=== PATIENT | female | born 1965 | race Caucasian/White ===

== ENCOUNTER → 2020-04-19 10:24 | Outpatient (BNVA) | payer MEDICARE, MEDICAID, SELFPAY | PROVIDERS: PCP Family Medicine; Referring Provider Family Medicine; Visit Provider Internal Medicine | DX: J30.9 Allergic rhinitis, unspecified (principal); J44.9 Chronic obstructive pulmonary disease, unspecified; Z79.899 Other long term (current) drug therapy | CPT/HCPCS: 99212 ==

== ENCOUNTER → 2020-05-29 10:37 | Outpatient (BNVA) | payer MEDICARE, MEDICAID, SELFPAY | PROVIDERS: PCP Family Medicine; Visit Provider Nurse Practitioner | DX: Z13.89 Encounter for screening for other disorder (principal) | CPT/HCPCS: Q3014 ==

== ENCOUNTER → 2020-07-10 09:44 | Outpatient (BNVA) | payer MEDICARE, MEDICAID, SELFPAY | PROVIDERS: PCP Family Medicine; Visit Provider Nurse Practitioner | DX: Z76.89 Persons encountering health services in other specified circumstances (principal) | CPT/HCPCS: Q3014 ==

== ENCOUNTER → 2020-11-09 11:00 | Outpatient (BNV) | payer MEDICARE, OTHER, MEDICAID, SELFPAY | PROVIDERS: PCP Family Medicine; Visit Provider Internal Medicine Medical Oncology | DX: Z86.711 Personal history of pulmonary embolism (principal); D68.51 Activated protein C resistance; M81.0 Age-related osteoporosis without current pathological fracture | CPT/HCPCS: 99213 ==

== ENCOUNTER 2020-11-23 10:28 | Outpatient (REF) | payer OTHER, SELFPAY ==
--- NOTE | ~2020-11-23 | MM_ITS ---
EXAMINATION: MM SCREENING DIGITAL BREAST TOMOSYNTHESIS, BILATERAL CLINICAL INFORMATION: Screening. Asymptomatic. The lifetime risk of breast cancer based on the Tyrer-Cuzick Model is 15%. COMPARISON: Mammography: 12/03/2018, 06/16/2014 TECHNIQUE: Digital breast tomosynthesis is performed in both the craniocaudal and mediolateral oblique views along with computer-aided detection (CAD). Synthesized 2D images are generated from the tomosynthesis. Additional bilateral exaggerated CC views are provided. FINDINGS: The breasts are almost entirely fatty (ACR BI-RADS breast composition Category a). There are no significant masses, abnormal calcifications, or other abnormalities. Parenchymal pattern is similar to prior studies. The axilla and skin contours are unremarkable. MM/MM tomosynthesis screening BI IMPRESSION: No mammographic evidence of malignancy. ASSESSMENT: BI-RADS 1: Negative RECOMMENDATION: Routine annual mammography screening. This patient's information was entered into a reminder system with a target due date for their next mammogram.
== END 2020-11-23 10:29 | disposition home or self-care (01) ==
LOC: HO.MAMMO 10:28
PROVIDERS: Visit Provider Internal Medicine
DX: Z12.31 Encounter for screening mammogram for malignant neoplasm of breast (principal)
CPT/HCPCS: 77063; 77067

== ENCOUNTER 2022-02-13 09:16 | Outpatient (REF) | payer OTHER, SELFPAY ==
--- NOTE | ~2022-02-13 | MM_ITS ---
EXAMINATION: MM SCREENING DIGITAL BREAST TOMOSYNTHESIS, BILATERAL CLINICAL INFORMATION: Screening. Asymptomatic. History reduction mammoplasty approximately 20 years ago. The lifetime risk of breast cancer based on the Tyrer-Cuzick Model is 14%. COMPARISON: Mammography: 11/23/2020, 12/03/2018, 06/16/2014. GI series and small bowel follow-through 06/22/2019. TECHNIQUE: Digital breast tomosynthesis is performed in both the craniocaudal and mediolateral oblique views along with computer-aided detection (CAD). Synthesized 2D images are generated from the tomosynthesis. FINDINGS: The breasts are almost entirely fatty (ACR BI-RADS breast composition Category a). The breasts are symmetrically smaller consistent with systemic weight loss. There are no significant masses, abnormal calcifications, or other abnormalities. Parenchymal pattern is similar to prior studies. There is no developing density or architectural abnormality. The axilla and skin contours are unremarkable. No significant changes. MM/MM tomosynthesis screening BI IMPRESSION: No mammographic evidence of malignancy. ASSESSMENT: BI-RADS 2: Benign RECOMMENDATION: Routine annual mammography screening. This patient's information was entered into a reminder system with a target due date for their next mammogram.
--- NOTE | ~2022-02-13 | MM_ITS ---
EXAMINATION: BONE DENSITOMETRY CLINICAL INDICATION: Asymptomatic premature menopause. Unspecified menopausal and perimenopausal disorder. COMPARISON: None (current study represents initial baseline exam). TECHNIQUE: Using a [employer] DXA System (software version: 13.1) manufactured by [employer], dual-energy x-ray absorptiometry was performed of the lumbar spine and left hip. The images are of good technical quality. Summary results are attached. FINDINGS: AP SPINE L1-L3 (excluding L4): The data of L1-L4 has been changed to exclude the L4 vertebral body, because hardware at this level may cause overestimation of lumbar spine density. BMD 1.457 g/cm2, Z-score 3.8, T-score 2.4, normal. LEFT FEMUR, NECK: BMD 0.688 g/cm2, Z-score -1.2, T-score -2.5, osteoporosis. LEFT FEMUR, TOTAL: BMD 0.731 g/cm2, Z-score -1.1, T-score -2.2, osteopenia. IDENTIFIED RISK FACTORS: Early menopause, secondary osteoporosis, height loss, low calcium intake. HISTORY OF FRACTURE: None listed. MEDICATIONS: Calcium supplements or multivitamin, vitamin D. MM/XR DEXA axial skeleton IMPRESSION: 1. DIAGNOSIS: Osteoporosis based on the lowest T-score value of -2.5 in the femoral neck applying World Health Organization criteria. 2. 10-YEAR FRACTURE RISK PREDICTION, FRAX: According to the guidelines, FRAX calculation should only be performed on patients in the osteopenia bone density category. Therefore, FRAX was not performed on this patient. 3. Treatment Recommendations: NOF guidelines recommend consideration for treatment in postmenopausal women and men age 50 and older presenting with the following: -A hip or vertebral (clinical or morphometric) fracture. -T-score less than or equal to -2.5 at the femoral neck or spine after appropriate evaluation to exclude secondary causes. -Low bone mass at the hip or spine and a 10-year fracture probability by FRAX of greater than or equal to 3% for hip fracture or greater than or equal to 20% for major osteoporotic fracture based on the [place] adapted WHO algorithm. 4. Other Recommendations: All treatment decisions require clinical judgment and consideration of individual patient factors, including patient preferences, comorbidities, previous drug use, risk factors not captured in the FRAX model (e.g. frailty, falls, vitamin D deficiency, increased bone turnover, interval significant decline in bone density) and possible under or overestimation of fracture risk by FRAX. Additional medical evaluation for secondary cause of low bone mineral density may be appropriate. FUTURE SCAN RECOMMENDATION: People with diagnosed cases of osteoporosis or at high risk for fracture should have regular bone mineral density tests. For patients eligible for Medicare, routine testing is allowed once every 2 years. The testing frequency can be increased to one year for patients who have rapidly progressing disease, those who are receiving or discontinuing medical therapy to restore bone mass, or have additional risk factors.
== END 2022-02-13 09:17 | disposition home or self-care (01) ==
LOC: HO.MAMMO 09:16
PROVIDERS: PCP Internal Medicine; Visit Provider Internal Medicine
DX: Z12.31 Encounter for screening mammogram for malignant neoplasm of breast (principal); Z13.820 Encounter for screening for osteoporosis; Z78.0 Asymptomatic menopausal state
CPT/HCPCS: 77063; 77067; 77080

== ENCOUNTER 2022-09-26 08:43 | Outpatient (REF) | payer OTHER, MEDICAID, SELFPAY ==
[2022-10-02 04:44] LABS: HPV mRNA E6/E7 rflx Not Detected (Not Detected)
== END 2022-09-26 08:44 | disposition home or self-care (01) ==
LOC: HO.LNP 08:43
PROVIDERS: PCP Internal Medicine; Visit Provider Advanced Practice Midwife
DX: Z01.419 Encounter for gynecological examination (general) (routine) without abnormal findings (principal)
CPT/HCPCS: 87624; 88142

== ENCOUNTER 2022-12-02 13:28 | Outpatient (REF) | payer OTHER, MEDICAID, SELFPAY ==
--- NOTE | ~2022-12-02 | XR_ITS ---
EXAMINATION: XR RIBS, LEFT CLINICAL INFORMATION: Contusion COMPARISON: 01/27/2019 TECHNIQUE: PA chest and 3 views of the left ribs were obtained. FINDINGS: Heart, mediastinum, pulmonary vessels and lung grant within normal limits. No pneumothorax or effusions. There is mildly displaced fracture of the fifth lateral rib and minimally displaced fractures of the fourth and fifth anterolateral ribs. XR/XR ribs LT min 3V w CXR1V IMPRESSION: Left-sided rib fractures.
== END 2022-12-02 13:29 | disposition home or self-care (01) ==
LOC: HO.HMGCX 13:28
PROVIDERS: PCP Internal Medicine; Visit Provider Internal Medicine
DX: S20.212D Contusion of left front wall of thorax, subsequent encounter (principal)
CPT/HCPCS: 71101

== ENCOUNTER 2022-12-05 08:33 | Outpatient (REF) | payer OTHER, MEDICAID, SELFPAY ==
[2022-12-05 12:37] LABS: Cholesterol 186 mg/dL; HDL Cholesterol 98 mg/dL; LDL Cholesterol Calculated 75 mg/dl; Triglycerides 65 mg/dL
[2022-12-05 12:38] LABS: TSH reflex Free T4 1.96 uIU/mL (0.32-4.0)
[2022-12-05 12:41] LABS: Folate 6.2 ng/mL (> or = 4.0); Vitamin B12 258 pg/mL (200-900)
== END 2022-12-05 08:34 | disposition home or self-care (01) ==
LOC: HO.HMGCLDS 08:33
PROVIDERS: PCP Internal Medicine; Visit Provider Internal Medicine
DX: Z00.01 Encounter for general adult medical examination with abnormal findings (principal); E28.319 Asymptomatic premature menopause; J30.9 Allergic rhinitis, unspecified; K21.9 Gastro-esophageal reflux disease without esophagitis; Z28.20 Immunization not carried out because of patient decision for unspecified reason; Z78.0 Asymptomatic menopausal state
CPT/HCPCS: 36415; 80061; 82306; 82607; 82746; 84443

== ENCOUNTER 2023-02-19 09:27 | Outpatient (REF) | payer OTHER, SELFPAY ==
--- NOTE | ~2023-02-19 | MM_ITS ---
EXAMINATION: MM SCREENING DIGITAL BREAST TOMOSYNTHESIS, BILATERAL CLINICAL INFORMATION: Screening. Asymptomatic. The patient has had a prior breast reduction. COMPARISON: Mammography: This study is compared with prior exams dating back to 2015. TECHNIQUE: Digital breast tomosynthesis is performed in both the craniocaudal and mediolateral oblique views along with computer-aided detection (CAD). Synthesized 2D images are generated from the tomosynthesis. FINDINGS: The breasts are almost entirely fatty (ACR BI-RADS breast composition Category a). There are no significant masses, abnormal calcifications, or other abnormalities. Mild post reduction changes are present in each breast. MM/MM tomosynthesis screening BI IMPRESSION: No mammographic evidence of malignancy. ASSESSMENT: BI-RADS BI-RADS 2 - Benign Findings RECOMMENDATION: Routine annual mammography screening. 1 year F/U This examination should not preclude the clinical evaluation of a suspicious palpable abnormality. This patient's information was entered into a reminder system with a target due date for their next mammogram.
== END 2023-02-19 09:28 | disposition home or self-care (01) ==
LOC: HO.MAMMO 09:27
PROVIDERS: PCP Internal Medicine; Visit Provider Internal Medicine
DX: Z12.31 Encounter for screening mammogram for malignant neoplasm of breast (principal)
CPT/HCPCS: 77063; 77067

== ENCOUNTER → 2023-02-19 09:30 | Outpatient (BNV) | payer OTHER, SELFPAY | PROVIDERS: PCP Internal Medicine; Visit Provider Radiology Diagnostic Radiology | DX: Z12.31 Encounter for screening mammogram for malignant neoplasm of breast (principal) | CPT/HCPCS: 77063; 77067 ==

== ENCOUNTER 2023-11-27 08:22 | Outpatient (AMB) | payer OTHER, SELFPAY ==
[2023-11-27 08:27] VITALS: BP 118/74; BMI 20.2
--- NOTE | 2023-11-27 08:27 | A.OFFVIS_ITS ---
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 She is doing well with no concerns. Attempting to eat a healthy diet with calcium and vitamin D and stays active with exercise. Currently sexually active. Denies any vaginal dryness or irritation. STI testing offered; she accepts. Last pap smear; 2022. Last mammogram; 2022. Colonoscopy is UTD. Denies any family history of breast, ovarian or colon cancer. FOR[facility], LAT[facility] Medical History Vaccine refused by patient Osteoporosis Early menopause Depression with anxiety Postmenopause Osteoarthritis of left knee Factor 5 Leiden mutation, heterozygous Fibromyalgia History of DVT of lower extremity Mild intermittent asthma in adult without complication Pulmonary embolism Allergic rhinitis Surgical History H/O bilateral breast reduction surgery Hx of knee surgery Hx of appendectomy History of esophagogastroduodenoscopy (EGD) Hx of colonoscopy Family History Father Lung cancer Factor 5 Leiden mutation, heterozygous DVT (deep venous thrombosis) Mother Stroke Sister Stroke Factor 5 Leiden mutation, heterozygous DVT (deep venous thrombosis) Brain aneurysm Brother Factor 5 Leiden mutation, heterozygous Pulmonary embolism DVT (deep venous thrombosis) Brother Factor 5 Leiden mutation, heterozygous DVT (deep venous thrombosis) Brother Factor 5 Leiden mutation, heterozygous DVT (deep venous thrombosis) Daughter Factor 5 Leiden mutation, heterozygous Social History Household Members: Spouse and Children Housing: House Are you a primary animal care specialist to a significant other at home: No Do you presently have visiting nurse or other home services: No Alcohol intake: current Alcohol intake frequency: a few times a month Alcohol type: beer Patient Tobacco Use Status: Former Tobacco user Years Smoked: 25 yrs e-Cigarette/Vaping Use: Never Used service: No Current occupational status: retired Cognitive needs: No Hearing needs: No Vision needs: No Female Reproductive History Menstrual Menopause type: natural Total pregnancies: 2 Full term: 1 Number of Living Children: 1 Ab induced: 1 Date of last pap smear: 09/29/22 Date of Mammogram: 02/19/23 Review of Systems Const All systems reviewed & are unremarkable except as noted in HPI and below Reports as per HPI Eyes Reports no additional complaints ENT Reports no additional complaints Card Reports no additional complaints Resp Reports no additional complaints GI Reports as per HPI and Reports no additional complaints Reports as per HPI Musc Reports no additional complaints Skin/Breast Reports as per HPI Neuro Reports no additional complaints Psych Reports no additional complaints Endo Reports no additional complaints Neal/Lymph Reports no additional complaints Aller/Immun Reports no additional complaints Physical Exam Vital Signs: Last Vital Signs BP 118/74 11/27/23 08:27 BMI result Body Mass Index 20.2 Const General: cooperative, healthy appearing, no acute distress, well developed and alert Orientation/consciousness: patient oriented x3 HEENT Head: Yes normal to inspection Eyes General: appearance normal, both eyes and all related structures Neck Neck: Yes normal visual inspection Thyroid: Thyroid normal Chest Other: Bilateral breast reduction scars Chest palpation & inspection: normal inspection of the chest and other (no puckering, dimpling, peau de orange, retraction, discharge, masses) Breast/axilla inspection: normal inspection of the breasts Breast/axilla palpation: normal palpation of the breasts Resp Effort & Inspection: normal respiratory effort GI Inspection: Yes normal to inspection Palpation (GI): Soft to palpation Rectal Exam - Female: deferred General: Yes bladder normal to palpation External Female Exam: normal external appearance and normal appearance of the urethra Speculum Exam - Vagina: normal appearance of the vagina, normal palpation, normal vaginal discharge and vagina atrophic Speculum Exam - Cervix: normal appearance of the cervix and normal palpation Bimanual exam- vagina & uterus: normal bimanual exam, normal palpation, uterine size normal, bladder normal to palpation, normal palpation and non-tender Bimanual Exam- Adnexa, other: no masses Skin General skin exam: no rashes or lesions noted Rashes: no rashes Neuro General: patient oriented x3 Cognition (Neuro): normal cognition Extrem General: Yes normal to inspection Psych Attitude: cooperative Thought process: Normal thought process present Assessment & Plan Assessment & Plan (1) Encounter for well woman exam with routine gynecological exam: Code(s): Z01.419 - Encounter for gynecological examination (general) (routine) without abnormal findings Category: Medical Plan Discussed: Current recommendations for pap smears per ASCCP guidelines. Breast awareness, periodic self breast exams and yearly mammogram. Maintain a healthy lifestyle, well balanced diet including Calcium 1,200 mg and Vitamin D 600 IU daily, and routine exercise. Contact the office with any postmenopausal bleeding. Patient verbalizes understanding and agrees to the plan of care. She was given opportunity to ask questions and all questions were answered to the best of my ability. 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 This note is constructed using voice recognition software. While every effort has been made to ensure accuracy, butcher assistant errors may have been included. Coding Level of Care Code Est Pt Prev Care 40-64y(41826) Diagnoses Encounter for well woman exam with routine gynecological exam Z01.419
== END 2023-11-27 09:01 | disposition home or self-care (01) ==
PROVIDERS: PCP Internal Medicine; Visit Provider Advanced Practice Midwife
DX: Z01.419 Encounter for gynecological examination (general) (routine) without abnormal findings (principal)
CPT/HCPCS: 99396

== ENCOUNTER → 2023-11-27 08:22 | Outpatient (BNVA) | payer OTHER, SELFPAY | PROVIDERS: PCP Internal Medicine; Visit Provider Advanced Practice Midwife ==

== ENCOUNTER 2023-12-01 07:58 | Outpatient (AMB) | payer OTHER, MEDICAID, SELFPAY ==
--- NOTE | 2023-12-01 08:01 | A.OFFPC_ITS ---
Vital Signs 12/01/23 08:08 Height 5 ft 5 in Weight 122 lb BMI 20.3 BP 122/78 Blood Pressure Location Rt brachial Position Sitting Pulse 83 Pulse Source Pulse Oximeter Pulse Oximetry (%) 100 Oxygen Delivery Method Room Air Intake Visit Reasons: PE Intake Note: Pt is here today for her PE Allergies No Known Allergies Allergy (Verified 12/01/23 08:18) Medication List - Last Reconciled 12/01/23 by Yanni Curry MD multivitamin (Daily Multi-Vitamin tablet) 1 tab PO DAILY rivaroxaban (Xarelto) 20 mg PO BID Tobacco use date assessed: 12/01/23 Dental Screening Dental Screen Date: 12/01/23 Did you have a dental visit in the last 12 months?: No Was dental information given to patient?: Patient has dentist HPI PE HPI Details -58 year-old lady here today for physica l exam. 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 Is a former smoker. Patient has osteoporosis in left femoral neck, seen on bone density scan done in 2021 but does not want treatment, at present time. She is up-to-date with her screening mammogram, due again in 02/25/2023. Up-to-date with her screening colonoscopy done in 2014, due again next year. She refuses to take any vaccines, but did receive pneumonia vaccine in 2018 , and also had a Tdap around that time. [facility] Medical History (Updated 12/01/23 @ 08:40 by Yanni Curry MD) Vaccine refused by patient Osteoporosis Early menopause Depression with anxiety Postmenopause Osteoarthritis of left knee Factor 5 Leiden mutation, heterozygous Fibromyalgia History of DVT of lower extremity Mild intermittent asthma in adult without complication Pulmonary embolism Allergic rhinitis Surgical History H/O bilateral breast reduction surgery Hx of knee surgery Hx of appendectomy History of esophagogastroduodenoscopy (EGD) Hx of colonoscopy Family History Father Lung cancer Factor 5 Leiden mutation, heterozygous DVT (deep venous thrombosis) Mother Stroke Sister Stroke Factor 5 Leiden mutation, heterozygous DVT (deep venous thrombosis) Brain aneurysm Brother Factor 5 Leiden mutation, heterozygous Pulmonary embolism DVT (deep venous thrombosis) Brother Factor 5 Leiden mutation, heterozygous DVT (deep venous thrombosis) Brother Factor 5 Leiden mutation, heterozygous DVT (deep venous thrombosis) Daughter Factor 5 Leiden mutation, heterozygous Social History Household Members: Spouse and Children Housing: House Are you a primary field care advocate to a significant other at home: No Do you presently have visiting nurse or other home services: No Alcohol intake: current Alcohol intake frequency: a few times a month Alcohol type: beer Patient Tobacco Use Status: Former Tobacco user Years Smoked: 25 yrs e-Cigarette/Vaping Use: Never Used service: No Current occupational status: retired Cognitive needs: No Hearing needs: No Vision needs: No Questionnaire PHQ-9 Over the last 2 weeks, how often have you been bothered by any of the following problems? 1. Little interest or pleasure in doing things: not at all 2. Feeling down, depressed, or hopeless: not at all 3. Trouble falling or staying asleep, or sleeping too much: not at all 4. Feeling tired or having little energy: not at all 5. Poor appetite or overeating: not at all 6. Feeling bad about yourself - or that you are a failure or have let yourself or your family down: not at all 7. Trouble concentrating on things, such as reading the newspaper or watching television: not at all 8. Moving or speaking so slowly that other people could have noticed. Or the opposite - being so fidgety or restless that you have been moving around a lot more than usual: not at all 9. Thoughts that you would be better off or of hurting yourself in some way: not at all Total score: 0 Depression Screening Interpretation: Negative Depression Screening Done: Yes 08315 - PHQ-9 Billing: Yes Source: Developed by Drs. Tashi Phillips, Jennie Tanner, Reagan Skelton and colleagues, with an educational vladimir from [employer]. Thrive Questionnaire Date Thrive assessed: 12/01/23 I am a: Patient What is your living situation today?: I have a steady place to live Within the past 12 months, did the food you bought not last and you didn't have the money to get more?: Never true Within the past 12 months, did you worry whether your food would run out before you got money to buy more?: Never true Do you have trouble paying for medicines?: No Do you have trouble getting transportation to medical appointments?: No Do you have trouble paying your heating and electricity bill?: No Do you have trouble taking care of your child, family member or friend?: No Do you have trouble with day-to-day activities such as bathing, preparing meals, shopping, managing finances, etc.?: No Are you currently unemployed and looking for a job?: No Are you interested in more education?: No THRIVE Score: 0 AUDIT C Alcohol Use Questionnaire (AUDIT-C) 1. How often do you have a drink containing alcohol?: Monthly or less 2. How many drinks containing alcohol do you have on a typical day when you are drinking?: 1 or 2 3. How often do you have six or more drinks on one occasion?: Never Total Score: 1 LUIS-7 AMB Questionnaire LUIS-7 Date LUIS - 7 assessed: 12/01/23 Feeling nervous, anxious, or on edge: 0 = Not at all Not being able to stop or control worryin = Not at all Worrying too much about different things: 0 = Not at all Trouble relaxin = Not at all Being so restless that it is hard to sit still: 0 = Not at all Becoming easily annoyed or irritable: 0 = Not at all Feeling afraid as if something awful might happen: 0 = Not at all Total LUIS-7 score (0-4 normal; 5-9 mild; 10-14 moderate; 15-21 severe): 0 Source: Developed by Drs. Tashi Phillips, Jennie Tanner, Reagan Skelton and colleagues, with an educational vladimir from [employer]. LUIS-7 Assessment Billing LUIS-7 Assessment Tool: LUIS-7 Assessment 14628 ACT Questionnaire In the past 4 weeks, how much of the time did your asthma keep you from getting as much done at work, school or at home?: None of the time During the past 4 weeks, how often have you had shortness of breath?: Not at all During the past 4 weeks, how often did your asthma symptoms wake you up at night or earlier than usual in the morning?: Not at all During the past 4 weeks, how often have you had to use your rescue inhaler or nebulizer medication?: Not at all How would you rate your asthma control during the past 4 weeks?: Completely controlled ACT Interpretation: Negative Score: 25 Review of Systems Const Denies body aches, Denies fatigue, Denies fever(s), Denies headache(s) and Denies night sweats Eyes Reports blurry vision (With reading) and Reports requires corrective lenses ENT Denies dysphagia, Denies dizziness, Denies headache(s), Reports nasal congestion, Reports post nasal drip, Denies sinus pain and Denies sore throat Card Denies chest pain, Denies irregular heart rhythm, Denies lightheadedness and Denies dyspnea Resp Denies cough, Denies excessive phlegm production, Denies pain on inspiration, Denies dyspnea and Denies wheezing GI Denies abdominal pain, Denies melena, Denies bloating, Denies hematochezia, Denies change in bowel habits, Denies dysphagia, Denies excessive flatus, Denies early satiety, Reports heartburn, Denies nausea, Denies vomiting and Denies hematemesis Denies hematuria, Denies difficulty voiding, Denies urinary incontinence, Denies urinary hesitancy and Denies urinary urgency Musc Denies back pain and Denies arthralgias Skin/Breast Denies breast swelling, Denies breast pain, Denies breast mass, Denies pruritus, Denies lesions, Denies rash and Denies unusual bruising Neuro Denies dizziness and Denies headache(s) Psych Reports no additional complaints Endo Reports no additional complaints and Denies fatigue Neal/Lymph Denies easy bleeding and Denies easy bruising Aller/Immun Denies wheezing Physical exam (Primary Care) Vital Signs: Last Vital Signs Pulse 83 12/01/23 08:08 BP 122/78 12/01/23 08:08 Pulse Ox 100 12/01/23 08:08 Oxygen Delivery Method Room Air 12/01/23 08:08 BMI result Body Mass Index 20.3 Tobacco/Smoking Status: Tobacco use Status Tobacco use date assessed 12/01/23 12/01/23 08:11 Patient Tobacco Use Status Former Tobacco user 12/01/23 08:01 e-Cigarette/Vaping Use Never Used 12/01/23 08:01 PHQ-9: PHQ-9 Score PHQ-9: Total score 0 12/01/23 14:59 Depression Screening Interpretation: Negative Thrive Assessment: Date of Thrive Assessment Date Thrive assessed 12/01/23 12/01/23 08:43 Advance Care Planning discussion: Completed/Scanned Date of discussion: 12/01/23 Who was present: Patient Forms completed: Health Care Proxy and MOLST (Completed on previous visits) Time spent: 16-45 minutes Actual minutes spent: 16 Const General: cooperative, healthy appearing, comfortable and no acute distress Nutritional Appearance: average body habitus Orientation/consciousness: patient oriented x3 HENMT Head: Yes normocephalic Ears: external ears normal, TM's normal bilaterally and EAC's normal General nose exam: Normal external nose present and No nasal discharge present Face and sinus: Yes face symmetric Mouth: Normal oral and palatal mucosa present, lip normal, tongue normal, oropharynx normal and moist mucous membranes Teeth and gingiva: dentures (Upper) Eyes General: appearance normal, both eyes and all related structures Neck Neck: Yes full ROM, Yes no lymphadenopathy and Yes supple Chest Chest palpation & inspection: normal inspection of the chest Breast/axilla inspection: normal inspection of the breasts Breast/axilla palpation: normal palpation of the breasts Resp Effort & Inspection: normal respiratory effort and able to speak in complete sentences Auscultation: clear to auscultation bilaterally Cardio Rate: regular rate Rhythm: regular rhythm Heart sounds: S1 normal heart sound present and S2 normal heart sound present GI Palpation (GI): Soft to palpation, nontender, no guarding and no masses General: Yes no CVA tenderness Back/Spine/Pelvis Back: no CVA tenderness and No back tenderness Skin General skin exam: no rashes or lesions noted Neuro General: patient oriented x3, gait normal, tone normal, moves all extremities, Normal light touch and pain sensation, no focal motor deficits and CN's II-XI intact bilaterally Gait exam (Neuro): Normal gait present Extrem General: Yes full ROM, Yes no joint enlargement, Yes no clubbing, cyanosis or edema and Yes normal gait Psych Appearance: grossly normal and well kempt Mental Status: mental status grossly normal Affect: normal affect Attitude: cooperative Thought process: Normal thought process present Thought content: Normal thought content present Results Reviewed Results Reviewed: Name: Lyndsay Benitez Age/Sex: 58/F : 1965 Unit#: [id number] Attend Dr: Izabella Fermin MD Re11/16/23 Status: REG RCR Location: [facility].ONC Disch: SPEC : [id number] DYLLAN: 11/16/23 STATUS: COMP REQ : [id number] RECD: 11/16/[address]: Izabella Fermin MD COMP: 11/16/23 ENTERED: 11/16/[address] [facility] [address]: Yanni Curry MD ORDERED: CBC Auto Diff Test Result Flag Reference WBC 6.2 4.8-10.8 X10*3/uL RBC 4.44 4.20-5.50 X10*6/uL HGB 14.9 12.0-16.0 g/dl HCT 43.5 37.0-47.0 % MCV 98.0 80.0-98.0 fL MCH 33.6 H 27.0-33.0 pg MCHC 34.3 31.0-35.0 g/dl RDW 14.9 11.0-16.0 % PLT 326 160-400 X10*3/uL MPV 9.1 L 9.4-12.3 fL Neut Pct Auto 32.7 L 45-73 % ImGran Pct Auto 0.2 0.0-0.4 % Lymp Pct Auto 54.0 H 20-40 % [place] Pct Auto 9.9 2-11 % Eos Pct Auto 2.1 0-4 % Baso Pct Auto 1.1 0-2 % NRBC Pct Auto 0.0 0.0-0.2 /100WBC ANC Neut Abs # 2.0 2.0-8.3 x10*3/uL ImGran Abs Auto 0.01 0.00-0.03 X10*3/uL Lymph Abs Auto 3.3 1.2-4.9 X10*3/uL [place] Abs Auto 0.6 0.1-1.2 X10*3/uL Eos Abs Auto 0.1 0.0-0.4 X10*3/uL Baso Abs Auto 0.1 0.0-0.2 X10*3/uL NRBC Abs Auto 0.000 0.0-0.012 X10*3/uL Name: Lyndsay Benitez Age/Sex: 58/F : 1965 Unit#: [id number] Attend Dr: Izabella Fermin MD Re11/16/23 Status: REG RCR Location: HO.ONC Disch: SPEC : [id number] DYLLAN: 11/16/23 STATUS: COMP REQ : [id number] RECD: 11/16/[address]: Izabella Fermin MD COMP: 11/16/23 ENTERED: 11/16/[address]: Yanni Curry MD ORDERED: CMP Test Result Flag Reference Sodium 139 135-145 mmol/L Potassium 3.9 3.3-5.1 mmol/L CL 102 96-108 mmol/L CO2 28 22-29 mmol/L Gap 13 12-20 BUN 10 9-16 mg/dL Creat 0.87 0.5-1.4 mg/dL Estimated CrCl 60.5 Provided height and weight: 165.1 cm, 55.8 kg. eGFR (calculated from the MDRD study equation) and eCrCl (calculated from the Cockcroft-Gault equation) are based on different parameters and may not yield comparable results. If eCrCl result is absurd, please check patient's height/weight. EGFR > 60 NOTE: For -[place] individuals, multiply the result by 1.210. Chronic Kidney Disease: Estimated GFR < 60 mL/min/1.73m2 Severe Kidney Disease: Estimated GFR < 15 mL/min/1.73m2 Glucose, Random 98 60-115 mg/dL CA 9.7 8.4-10.2 mg/dL Total Bili 0.7 0.0-1.0 mg/dL AST (GOT) 33 H 5-31 U/L ALT (GPT) 12 0-31 U/L Protein, Total 7.1 6.5-8.0 g/dL Alb 3.8 3.5-5.0 g/dL Alk Phos 103 39-117 U/L Assessment and Plan Assessment & Plan (1) Annual visit for general adult medical examination with abnormal findings: Code(s): Z00.01 - Encounter for general adult medical examination with abnormal findings Plan: Patient has osteoporosis in left femoral neck, seen on bone density scan done in 2021 but does not want treatment, at present time. She is up-to-date with her screening mammogram, due again in 02/25/2023. Up-to-date with her screening colonoscopy done in 2014, due again next year. She refuses to take any vaccines, but did receive pneumonia vaccine in 2018 , and also had a Tdap around that time. (2) Mild intermittent asthma in adult without complication: Comment: Followed by Dr. Nelson Code(s): J45.20 - Mild intermittent asthma, uncomplicated Plan: Followed by Pulmonary , asymptomatic, currently not using any inhalers at present time. Recommended to get vaccinations against flu , COVID, and pneumonia as well as shingles but patient declined (3) Factor 5 Leiden mutation, heterozygous: Code(s): D68.51 - Activated protein C resistance Plan: Currently on rivaroxaban 20 mg 1 tablet twice a day, followed by hematology (4) Osteoporosis: Code(s): M81.0 - Age-related osteoporosis without current pathological fracture Plan: Declines further treatment or testing. Stressed importance of doing regular weight-bearing exercise, recommended to take [id number] vitamin D3 supplements at least 2000 units daily or multivitamin with vitamin-D and calcium daily (5) Encounter for counseling regarding advance directives: Code(s): Z71.89 - Other specified counseling Plan: Initiated the conversation about Advanced Directives. Advanced Directives help patients prepare for current and future decisions about their medical treatment and place of care. Discussed with patient that it is a process where a patients current condition and prognosis are reviewed, their wishes for information regarding their illness are elicited, and likely medical dilemmas are presented and options discussed. Healthcare proxy form and MOLST form completed. These forms can be amended as needed, reviewed yearly and make changes as needed Orders: Orders Vitamin D 25-OH Total 12/02/23 M81.0 - Age-related osteoporosis without current pathological fracture, E28.319 - Asymptomatic premature menopause, D68.51 - Activated protein C resistance, J45.20 - Mild intermittent asthma, uncomplicated, J30.9 - Allergic rhinitis, unspecified, Z71.89 - Other specified counseling, Z00.01 - Encounter for general adult medical examination with abnormal findings, Z13.220 - Encounter for screening for lipoid disorders Lipid Panel 12/02/23 M81.0 - Age-related osteoporosis without current pathological fracture, E28.319 - Asymptomatic premature menopause, D68.51 - Activated protein C resistance, Z13.220 - Encounter for screening for lipoid disorders Coding Level of Care Code Est Pt Prev Care 40-64y(41209) Diagnoses Annual visit for general adult medical examination with abnormal findings Z00.01 Mild intermittent asthma in adult without complication J45.20 Factor 5 Leiden mutation, heterozygous D68.51 Osteoporosis M81.0 Encounter for counseling regarding advance directives Z71.89 Additional Codes LUIS-7 Assessment Billing - LUIS-7 Assessment Tool: LUIS-7 Assessment 53065 ([id number]) Vital Signs *Quality* - Advance Care Planning discussion: Completed/Scanned ([id number]) Vital Signs *Quality* - Time spent: 16-45 minutes ([id number])
[2023-12-01 08:08] VITALS: BP 122/78; PULSE 83; O2SAT 100; BMI 20.3
== END 2023-12-01 08:52 | disposition home or self-care (01) ==
PROVIDERS: PCP Internal Medicine; Visit Provider Internal Medicine
DX: Z00.01 Encounter for general adult medical examination with abnormal findings (principal); J45.20 Mild intermittent asthma, uncomplicated; D68.51 Activated protein C resistance; M81.0 Age-related osteoporosis without current pathological fracture; Z71.89 Other specified counseling; Z00.00 Encounter for general adult medical examination without abnormal findings
CPT/HCPCS: 1123F; 99499

== ENCOUNTER 2023-12-02 08:58 | Outpatient (REF) | payer OTHER, SELFPAY ==
[2023-12-02 11:54] LABS: Cholesterol 224 mg/dL (<200); HDL Cholesterol 140 mg/dL (>40); LDL Cholesterol Calculated 69 mg/dL (<100); Triglycerides 77 mg/dL (<150)
[2023-12-02 12:09] LABS: Vitamin D 25-OH Total 49.9 ng/mL (>30)
== END 2023-12-02 08:59 | disposition home or self-care (01) ==
LOC: HO.HMGCLDS 08:58
PROVIDERS: PCP Internal Medicine; Visit Provider Internal Medicine
DX: Z00.01 Encounter for general adult medical examination with abnormal findings (principal); M81.0 Age-related osteoporosis without current pathological fracture; E28.319 Asymptomatic premature menopause; D68.51 Activated protein C resistance; J45.20 Mild intermittent asthma, uncomplicated; J30.9 Allergic rhinitis, unspecified; Z71.89 Other specified counseling; Z13.220 Encounter for screening for lipoid disorders
CPT/HCPCS: 36415; 80061; 82306

== ENCOUNTER 2024-02-26 09:17 | Outpatient (REF) | payer OTHER, SELFPAY ==
--- NOTE | ~2024-02-26 | MM_ITS ---
EXAMINATION: MM SCREENING DIGITAL BREAST TOMOSYNTHESIS, BILATERAL CLINICAL INFORMATION: Screening. Asymptomatic. COMPARISON: Mammography: Comparison is made with available priors TECHNIQUE: Digital breast mammography with tomosynthesis is performed in both the craniocaudal and mediolateral oblique views along with computer-aided detection (CAD). FINDINGS: There are scattered areas of fibroglandular density (ACR BI-RADS breast composition Category b). There are no significant masses, abnormal calcifications, or other abnormalities. MM/MM tomosynthesis screening BI IMPRESSION: No mammographic evidence of malignancy. ASSESSMENT: BI-RADS BI-RADS 1 - Negative RECOMMENDATION: Routine annual mammography screening. 1 year F/U This examination should not preclude the clinical evaluation of a suspicious palpable abnormality. This patient's information was entered into a reminder system with a target due date for their next mammogram. Electronically signed by: Jacqueline Gamboa DO 03/09/2024 01:51 PM EDT
== END 2024-02-26 09:18 | disposition home or self-care (01) ==
LOC: HO.MAMMO 09:17
PROVIDERS: PCP Internal Medicine; Visit Provider Internal Medicine
DX: Z12.31 Encounter for screening mammogram for malignant neoplasm of breast (principal)
CPT/HCPCS: 77063; 77067

== ENCOUNTER → 2024-02-26 09:30 | Outpatient (BNV) | payer OTHER, SELFPAY | PROVIDERS: PCP Internal Medicine; Visit Provider Internal Medicine | DX: Z12.31 Encounter for screening mammogram for malignant neoplasm of breast (principal) | CPT/HCPCS: 77063; 77067 ==

== ENCOUNTER 2024-11-21 11:24 | Outpatient (AMB) | payer MEDICARE, SELFPAY ==
--- NOTE | 2024-11-21 11:37 | AM.OFFWIN_ITS ---
Intake Vital Signs 11/21/24 11:38 Height 5 ft 5 in Weight 130 lb 2 oz BMI 21.7 BP 110/78 Blood Pressure Location Lt brachial Position Sitting Pulse 105 H Pulse Source Pulse Oximeter Temp 98.2 F Temp Source Oral Pulse Oximetry (%) 97 Oxygen Delivery Method Room Air Intake Visit Reasons: EP Tailbone pain Intake Note: Pt presents to the office today for c/o pain on her tailbone. Pt states this started 3 days ago with no known injury. Patient Tobacco Use Status: Current everyday Tobacco user Allergies No Known Allergies Allergy (Verified 11/21/24 11:39) HPI HPI Comments History of Present Illness Details 59 y/o Female patient who presents to [facility] walk in clinic with c/o Tailbone pain for 3 days. Denies any recent injury or trauma. Denies any constipation or diarrhea. Denies rectal bleeding. [facility] [place] Medical History (Updated 11/21/24 @ 12:14 by Alayna Webb NP) Tail bone pain Vaccine refused by patient Osteoporosis Early menopause Depression with anxiety Postmenopause Osteoarthritis of left knee Factor 5 Leiden mutation, heterozygous Fibromyalgia History of DVT of lower extremity Mild intermittent asthma in adult without complication Pulmonary embolism Allergic rhinitis Surgical History H/O bilateral breast reduction surgery Hx of knee surgery Hx of appendectomy History of esophagogastroduodenoscopy (EGD) Hx of colonoscopy Family History Father Lung cancer Factor 5 Leiden mutation, heterozygous DVT (deep venous thrombosis) Mother Stroke Sister Stroke Factor 5 Leiden mutation, heterozygous DVT (deep venous thrombosis) Brain aneurysm Brother Factor 5 Leiden mutation, heterozygous Pulmonary embolism DVT (deep venous thrombosis) Brother Factor 5 Leiden mutation, heterozygous DVT (deep venous thrombosis) Brother Factor 5 Leiden mutation, heterozygous DVT (deep venous thrombosis) Daughter Factor 5 Leiden mutation, heterozygous Social History Household Members: Spouse and Children Housing: House Are you a primary date night caregiver to a significant other at home: No Do you presently have visiting nurse or other home services: No Alcohol intake: current Alcohol intake frequency: a few times a month Alcohol type: beer Patient Tobacco Use Status: Current everyday Tobacco user Years Smoked: 25 yrs e-Cigarette/Vaping Use: Never Used service: No Current occupational status: retired Cognitive needs: No Hearing needs: No Vision needs: No Review of Systems Const All systems reviewed & are unremarkable except as noted in HPI and below Physical Exam Vital Signs: Last Vital Signs Temp 98.2 F 11/21/24 11:38 Pulse 105 H 11/21/24 11:38 BP 110/78 11/21/24 11:38 Pulse Ox 97 11/21/24 11:38 Oxygen Delivery Method Room Air 11/21/24 11:38 BMI result Body Mass Index 21.7 Const General: no acute distress Nutritional Appearance: thin Orientation/consciousness: patient oriented x3 Back/Spine/Pelvis Sacrum: no erythema, no swelling, tenderness midline and No sacral edema Coccyx: Coccyx tenderness present on direct palpation Neuro General: patient oriented x3, gait normal (walks with a slight limp due to pain) and moves all extremities Psych Speech and movement: Normal speech and movement present Assessment & Plan Assessment & Plan (1) Tail bone pain: Code(s): M53.3 - Sacrococcygeal disorders, not elsewhere classified Plan: Ordered Xray of Tailbone to r/o Fracture. NSAIDs or Acetaminophen for pain relief. Orders: Orders XR sacrum coccyx min 2V Today M53.3 - Sacrococcygeal disorders, not elsewhere classified Coding Level of Care Code Est Pt Level 4 (12245) Diagnoses Tail bone pain M53.3 Time Spent (min) 20
[2024-11-21 11:38] VITALS: BP 110/78; PULSE 105; TEMP 36.8; O2SAT 97; BMI 21.7
== END 2024-11-21 12:14 | disposition home or self-care (01) ==
PROVIDERS: PCP Internal Medicine; Visit Provider Nurse Practitioner Family
DX: M53.3 Sacrococcygeal disorders, not elsewhere classified (principal)

== ENCOUNTER 2024-11-21 11:24 | Outpatient (REF) | payer MEDICARE, SELFPAY ==
--- NOTE | ~2024-11-21 | XR_ITS ---
EXAMINATION: XR SACRUM AND COCCYX CLINICAL INFORMATION: M53.3 - Sacrococcygeal disorders, not elsewhere classified COMPARISON: None available. TECHNIQUE: 2 views of the sacrum and 2 views of the coccyx were obtained. FINDINGS: There has been prior fusion of L4-S1 with transpedicular screws, and posterior connecting rods. Disc prosthesis present at L5-S1. Associated L4 and L5 laminectomies. Hardware appears intact without complication. There are mild to moderate degenerative changes in both SI joints. The sacrum appears intact. No sacral or coccygeal abnormality identified. XR/XR sacrum coccyx min 2V IMPRESSION: No acute bony abnormalities. L4-S1 fusion without definite complication. Electronically signed by: Nikko Santana MD 11/21/2024 01:29 PM EDT
== END 2024-11-21 11:25 | disposition home or self-care (01) ==
LOC: HO.HMGCX 11:24
PROVIDERS: PCP Internal Medicine; Visit Provider Nurse Practitioner Family
DX: M53.3 Sacrococcygeal disorders, not elsewhere classified (principal)
CPT/HCPCS: 72220; 99212

== ENCOUNTER → 2024-11-21 12:18 | Outpatient (BNV) | payer MEDICARE, SELFPAY | PROVIDERS: PCP Internal Medicine; Visit Provider Radiology Diagnostic Radiology | DX: M53.3 Sacrococcygeal disorders, not elsewhere classified (principal); Z98.1 Arthrodesis status | CPT/HCPCS: 72220 ==

== ENCOUNTER 2024-12-01 09:08 | Outpatient (AMB) | payer MEDICARE, SELFPAY ==
--- NOTE | 2024-12-01 09:17 | MHC.OFFVIS ---
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 She is doing well with no towel distributor concerns. Currently experiencing coccyx pain, plans follow up w/PCP. Not sexually active, partner has medical concerns. Denies any vaginal dryness or irritation. STI testing offered; she declines. Attempting to eat a healthy diet with calcium and vitamin D and stays active with exercise. Last pap smear; 2022, negative. Last mammogram; 2023. Colonoscopy is UTD. Denies any family history of ovarian or colon cancer. FH breast cancer. [facility] Medical History Tail bone pain Vaccine refused by patient Osteoporosis Early menopause Depression with anxiety Postmenopause Osteoarthritis of left knee Factor 5 Leiden mutation, heterozygous Fibromyalgia History of DVT of lower extremity Mild intermittent asthma in adult without complication Pulmonary embolism Allergic rhinitis Surgical History H/O hemorrhoidectomy History of spinal fusion H/O bilateral breast reduction surgery Hx of knee surgery Hx of appendectomy History of esophagogastroduodenoscopy (EGD) Hx of colonoscopy Family History Father Lung cancer Factor 5 Leiden mutation, heterozygous DVT (deep venous thrombosis) Mother Stroke Sister Stroke Factor 5 Leiden mutation, heterozygous DVT (deep venous thrombosis) Brain aneurysm Brother Factor 5 Leiden mutation, heterozygous Pulmonary embolism DVT (deep venous thrombosis) Brother Factor 5 Leiden mutation, heterozygous DVT (deep venous thrombosis) Brother Factor 5 Leiden mutation, heterozygous DVT (deep venous thrombosis) Daughter Factor 5 Leiden mutation, heterozygous Paternal Aunt History of breast cancer Family/Other History of breast cancer Social History Household Members: Spouse and Children Housing: House Are you a primary acute care clinical nurse specialist to a significant other at home: No Do you presently have visiting nurse or other home services: No Alcohol intake: current Alcohol intake frequency: a few times a month Alcohol type: beer Patient Tobacco Use Status: Current everyday Tobacco user Cigarettes Per Day: 3 Years Smoked: 25 yrs e-Cigarette/Vaping Use: Never Used service: No Current occupational status: retired Cognitive needs: No Hearing needs: No Vision needs: No Female Reproductive History Menstrual Total pregnancies: 2 Full term: 1 Number of Living Children: 1 Ab induced: 1 Date of last pap smear: 09/26/22 (neg pap and hpv) Date of Mammogram: 02/26/24 (Birad 1) Date of last Bone Density Screenin02/13/22 Review of Systems Const All systems reviewed & are unremarkable except as noted in HPI and below Reports as per HPI Eyes Reports no additional complaints ENT Reports no additional complaints Card Reports no additional complaints Resp Reports no additional complaints GI Reports as per HPI and Reports no additional complaints Reports as per HPI Musc Reports no additional complaints Skin/Breast Reports as per HPI Neuro Reports no additional complaints Psych Reports no additional complaints Endo Reports no additional complaints Neal/Lymph Reports no additional complaints Aller/Immun Reports no additional complaints Physical Exam Vital Signs: Last Vital Signs BP 100/66 12/01/24 09:19 BMI result Body Mass Index 21.6 Const General: cooperative, healthy appearing, no acute distress, well developed and alert Orientation/consciousness: patient oriented x3 HEENT Head: Yes normal to inspection Eyes General: appearance normal, both eyes and all related structures Neck Neck: Yes normal visual inspection Thyroid: Thyroid normal Chest Chest palpation & inspection: normal inspection of the chest and other (no puckering, dimpling, peau de orange, retraction, discharge, masses) Breast/axilla inspection: normal inspection of the breasts Breast/axilla palpation: normal palpation of the breasts Resp Effort & Inspection: normal respiratory effort GI Inspection: Yes normal to inspection Palpation (GI): Soft to palpation Rectal Exam - Female: deferred General: Yes bladder normal to palpation External Female Exam: normal external appearance and normal appearance of the urethra Speculum Exam - Vagina: normal appearance of the vagina, normal palpation, normal vaginal discharge and vagina atrophic Speculum Exam - Cervix: normal appearance of the cervix and normal palpation Bimanual exam- vagina & uterus: normal bimanual exam, normal palpation, uterine size normal, bladder normal to palpation, normal palpation and non-tender Bimanual Exam- Adnexa, other: no masses Skin General skin exam: no rashes or lesions noted Rashes: no rashes Neuro General: patient oriented x3 Cognition (Neuro): normal cognition Extrem General: Yes normal to inspection Psych Attitude: cooperative Thought process: Normal thought process present Assessment & Plan Assessment & Plan (1) Encounter for well woman exam with routine gynecological exam: Code(s): Z01.419 - Encounter for gynecological examination (general) (routine) without abnormal findings Category: Medical Plan Discussed: Current recommendations for pap smears per ASCCP guidelines. Breast awareness, periodic self breast exams and yearly mammogram. Maintain a healthy lifestyle, well balanced diet including Calcium 1,200 mg and Vitamin D 600 IU daily, and routine exercise. Contact the office with any postmenopausal bleeding. Patient verbalizes understanding and agrees to the plan of care. She was given opportunity to ask questions and all questions were answered to the best of my ability. RTO in 1 year for annual towel distributor exam. This note is constructed using voice recognition software. While every effort has been made to ensure accuracy, phthalic acid purifier errors may have been included. Coding Level of Care Code Est Pt Prev Care 40-64y(18520) Diagnoses Encounter for well woman exam with routine gynecological exam Z01.419
[2024-12-01 09:19] VITALS: BP 100/66; BMI 21.6
== END 2024-12-01 09:55 | disposition home or self-care (01) ==
PROVIDERS: PCP Internal Medicine; Visit Provider Advanced Practice Midwife
DX: Z01.419 Encounter for gynecological examination (general) (routine) without abnormal findings (principal)
CPT/HCPCS: 99396; 99459

== ENCOUNTER → 2024-12-01 09:08 | Outpatient (BNVA) | payer MEDICARE, SELFPAY | PROVIDERS: PCP Internal Medicine; Visit Provider Advanced Practice Midwife | DX: Z01.419 Encounter for gynecological examination (general) (routine) without abnormal findings (principal) | CPT/HCPCS: 99396 ==

== ENCOUNTER 2025-01-09 08:49 | Outpatient (AMB) | payer MEDICARE, SELFPAY ==
[2025-01-09 09:07] VITALS: BP 100/64; PULSE 95; RESP 15; TEMP 36.8; O2SAT 95; BMI 21.3
--- NOTE | 2025-01-09 09:07 | MHC.PC.OV ---
Vital Signs 01/09/25 09:07 Height 5 ft 5 in Weight 128 lb BMI 21.3 BP 100/64 Blood Pressure Location Lt brachial Position Sitting Respiration 15 Pulse 95 Pulse Source Pulse Oximeter Temp 98.3 F Temp Source Oral Pulse Oximetry (%) 95 Oxygen Delivery Method Room Air Intake Visit Reasons: PE - see comments Intake Note: Pt is here today for her PE: last mammogram 02/26/24, papsmear 09/25/22, colonoscopy 12/12/14 Allergies No Known Allergies Allergy (Verified 01/09/25 09:35) Medication List - Last Reconciled 01/09/25 by Yanni Curry MD multivitamin (Daily Multi-Vitamin tablet) 1 tab PO DAILY omeprazole 20 mg PO DAILY rivaroxaban 20 mg PO DAILY Tobacco use date assessed: 01/09/25 Dental Screening Dental Screen Date: 01/09/25 Did you have a dental visit in the last 12 months?: No Did you have a dental problem in the last 6 months where you did not have access to dental care?: No Was dental information given to patient?: Patient has dentist HPI PE - see comments HPI Details - The patient is a 59-year-old female presenting for her physical exam. - Osteoporosis: Diagnosed in the left hip with normal lower back density, first noted in 2021. No post-menopausal fractures reported. 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 - Smoking cessation: Reduced smoking to a pack every three days, relying on willpower without nicotine replacement. Declines help in quitting smoking - Preventative care: Due for colonoscopy, with no family history of colon cancer. Scheduled for mammogram and bone density screening. [facility] Medical History (Updated 01/15/25 @ 04:10 by Yanni Curry MD) Not ready to quit smoking Heartburn Tail bone pain Vaccine refused by patient Osteoporosis Early menopause Depression with anxiety Postmenopause Osteoarthritis of left knee Factor 5 Leiden mutation, heterozygous Fibromyalgia History of DVT of lower extremity Mild intermittent asthma in adult without complication Pulmonary embolism Allergic rhinitis Surgical History H/O hemorrhoidectomy History of spinal fusion H/O bilateral breast reduction surgery Hx of knee surgery Hx of appendectomy History of esophagogastroduodenoscopy (EGD) Hx of colonoscopy Family History Father Lung cancer Factor 5 Leiden mutation, heterozygous DVT (deep venous thrombosis) Mother Stroke Sister Stroke Factor 5 Leiden mutation, heterozygous DVT (deep venous thrombosis) Brain aneurysm Brother Factor 5 Leiden mutation, heterozygous Pulmonary embolism DVT (deep venous thrombosis) Brother Factor 5 Leiden mutation, heterozygous DVT (deep venous thrombosis) Brother Factor 5 Leiden mutation, heterozygous DVT (deep venous thrombosis) Daughter Factor 5 Leiden mutation, heterozygous Paternal Aunt History of breast cancer Family/Other History of breast cancer Social History Household Members: Spouse and Children Housing: House Are you a primary post acute care registered nurse to a significant other at home: No Do you presently have visiting nurse or other home services: No Alcohol intake: current Alcohol intake frequency: a few times a month Alcohol type: beer Patient Tobacco Use Status: Current everyday Tobacco user Cigarettes Per Day: 3 Years Smoked: 25 yrs e-Cigarette/Vaping Use: Never Used service: No Current occupational status: retired Cognitive needs: No Hearing needs: No Vision needs: Yes Questionnaire PHQ-9 Over the last 2 weeks, how often have you been bothered by any of the following problems? 1. Little interest or pleasure in doing things: not at all 2. Feeling down, depressed, or hopeless: not at all 3. Trouble falling or staying asleep, or sleeping too much: several days 4. Feeling tired or having little energy: several days 5. Poor appetite or overeating: not at all 6. Feeling bad about yourself - or that you are a failure or have let yourself or your family down: not at all 7. Trouble concentrating on things, such as reading the newspaper or watching television: not at all 8. Moving or speaking so slowly that other people could have noticed. Or the opposite - being so fidgety or restless that you have been moving around a lot more than usual: not at all 9. Thoughts that you would be better off or of hurting yourself in some way: not at all Total score: 2 Depression Screening Interpretation: Negative Depression Screening Done: Yes Source: Developed by Drs. Tashi Phillips, Jennie Tanner, Reagan Skelton and colleagues, with an educational vladimir from [facility]. Thrive Questionnaire Date Thrive assessed: 01/02/25 I am a: Patient What is your living situation today?: I have a steady place to live Within the past 12 months, did the food you bought not last and you didn't have the money to get more?: Sometimes True Within the past 12 months, did you worry whether your food would run out before you got money to buy more?: Sometimes True Do you have trouble paying for medicines?: No Do you have trouble getting transportation to medical appointments?: No Do you have trouble paying your heating and electricity bill?: No Do you have trouble taking care of your child, family member or friend?: No Do you have trouble with day-to-day activities such as bathing, preparing meals, shopping, managing finances, etc.?: No Are you currently unemployed and looking for a job?: No Are you interested in more education?: No Please select the resources that you would like help with: None Currently or been in a relationship where the following occur: No concerns reported THRIVE Score: 2 AUDIT C Alcohol Use Questionnaire (AUDIT-C) 1. How often do you have a drink containing alcohol?: Monthly or less 2. How many drinks containing alcohol do you have on a typical day when you are drinking?: 1 or 2 3. How often do you have six or more drinks on one occasion?: Less than monthly Total Score: 2 LUIS-7 AMB Questionnaire LUIS-7 Date LUIS - 7 assessed: 12/01/23 Feeling nervous, anxious, or on edge: 1 = Several days Not being able to stop or control worryin = Several days Worrying too much about different things: 1 = Several days Trouble relaxin = Not at all Being so restless that it is hard to sit still: 0 = Not at all Becoming easily annoyed or irritable: 0 = Not at all Feeling afraid as if something awful might happen: 1 = Several days Total LUIS-7 score (0-4 normal; 5-9 mild; 10-14 moderate; 15-21 severe): 4 Source: Developed by Drs. Tashi Phillips, Jennie Tanner, Reagan Skelton and colleagues, with an educational vladimir from [facility]. LUIS-7 Assessment Billing LUIS-7 Assessment Tool: LUIS-7 Assessment 12447 Review of Systems Const Denies body aches, Denies fever(s), Denies headache(s) and Denies night sweats Eyes Reports blurry vision (With reading) and Reports requires corrective lenses ENT Denies dysphagia, Denies dizziness and Denies headache(s) Card Denies chest pain, Denies irregular heart rhythm, Denies lightheadedness and Denies dyspnea Resp Denies cough, Denies excessive phlegm production, Denies pain on inspiration, Denies dyspnea and Denies wheezing GI Denies abdominal pain, Denies melena, Denies bloating, Denies hematochezia, Denies change in bowel habits, Denies dysphagia, Denies excessive flatus, Denies early satiety, Reports heartburn, Denies nausea, Denies vomiting and Denies hematemesis Denies hematuria, Denies difficulty voiding, Denies urinary incontinence, Denies urinary hesitancy and Denies urinary urgency Musc Denies back pain and Denies arthralgias Skin/Breast Denies breast swelling, Denies breast pain, Denies breast mass, Denies pruritus, Denies lesions, Denies rash and Denies unusual bruising Neuro Denies dizziness and Denies headache(s) Psych Reports no additional complaints Endo Reports no additional complaints Neal/Lymph Denies easy bleeding and Denies easy bruising Aller/Immun Denies wheezing Physical exam (Primary Care) Vital Signs: Last Vital Signs Temp 98.3 F 01/09/25 09:07 Pulse 95 01/09/25 09:07 Resp 15 01/09/25 09:07 BP 100/64 01/09/25 09:07 Pulse Ox 95 01/09/25 09:07 Oxygen Delivery Method Room Air 01/09/25 09:07 BMI result Body Mass Index 21.3 Tobacco/Smoking Status: Tobacco use Status Tobacco use date assessed 01/09/25 01/09/25 09:12 Patient Tobacco Use Status Current everyday Tobacco 01/09/25 09:12 e-Cigarette/Vaping Use Never Used 01/09/25 09:12 PHQ-9: PHQ-9 Score PHQ-9: Total score 2 08/04/25 09:51 Depression Screening Interpretation: Negative Thrive Assessment: Date of Thrive Assessment Date Thrive assessed 01/02/25 01/09/25 09:12 Currently or been in a relationship where the following occur: No concerns reported Const General: cooperative and no acute distress Nutritional Appearance: average body habitus Orientation/consciousness: patient oriented x3 HENMT Head: Yes normocephalic Ears: external ears normal, TM's normal bilaterally and EAC's normal General nose exam: Normal external nose present Face and sinus: Yes face symmetric Mouth: Normal oral and palatal mucosa present, oropharynx normal and moist mucous membranes Teeth and gingiva: dentures (Upper) Eyes General: appearance normal, both eyes and all related structures Neck Neck: Yes full ROM, Yes no lymphadenopathy and Yes supple Chest Chest palpation & inspection: normal inspection of the chest Breast/axilla inspection: normal inspection of the breasts Breast/axilla palpation: normal palpation of the breasts Resp Effort & Inspection: normal respiratory effort and able to speak in complete sentences Auscultation: clear to auscultation bilaterally Cardio Rate: regular rate Rhythm: regular rhythm Heart sounds: S1 normal heart sound present and S2 normal heart sound present GI Palpation (GI): Soft to palpation, nontender, no guarding and no masses General: Yes no CVA tenderness Back/Spine/Pelvis Back: no CVA tenderness and No back tenderness Skin General skin exam: no rashes or lesions noted Neuro General: patient oriented x3, gait normal, tone normal, moves all extremities, Normal light touch and pain sensation, no focal motor deficits and CN's II-XI intact bilaterally Gait exam (Neuro): Normal gait present Extrem General: Yes full ROM, Yes no joint enlargement, Yes no clubbing, cyanosis or edema and Yes normal gait Psych Appearance: grossly normal and well kempt Mental Status: mental status grossly normal Affect: normal affect Attitude: cooperative Coding Level of Care Code Est Pt Prev Care 40-64y(58622) Diagnoses Annual visit for general adult medical examination with abnormal findings Z00.01 Encounter for screening for malignant neoplasm of colon Z12.11 Heartburn R12 Age-related osteoporosis without current pathological fracture M81.0 Osteoporosis type: age-related Presence of current pathological fracture: without current pathological fracture Mild intermittent asthma in adult without complication J45.20 Factor 5 Leiden mutation, heterozygous D68.51 Vaccine refused by patient Z28.20 Additional Codes LUIS-7 Assessment Billing - LUIS-7 Assessment Tool: LUIS-7 Assessment 96898 ([id number]) Assessment & Plan Assessment & Plan (1) Annual visit for general adult medical examination with abnormal findings: Code(s): Z00.01 - Encounter for general adult medical examination with abnormal findings (2) Encounter for screening for malignant neoplasm of colon: Code(s): Z12.11 - Encounter for screening for malignant neoplasm of colon (3) Heartburn: Code(s): R12 - Heartburn Category: Medical (4) Osteoporosis: Code(s): M81.0 - Age-related osteoporosis without current pathological fracture Category: Medical Qualifiers: Osteoporosis type: age-related Presence of current pathological fracture: without current pathological fracture Qualified Code(s): M81.0 - Age-related osteoporosis without current pathological fracture (5) Heartburn: Code(s): R12 - Heartburn Category: Medical (6) Mild intermittent asthma in adult without complication: Comment: Followed by Dr. Nelson Code(s): J45.20 - Mild intermittent asthma, uncomplicated Category: Medical (7) Factor 5 Leiden mutation, heterozygous: Code(s): D68.51 - Activated protein C resistance Category: Medical (8) Vaccine refused by patient: Code(s): Z28.20 - Immunization not carried out because of patient decision for unspecified reason Category: Medical Plan - Mammogram scheduled for March 03. - Bone density screening due, with previous results showing osteoporosis in the left hip. - Colonoscopy due this year, with no family history of colon cancer, referral to GI clinic ordered. - Pap smear completed in 2022, currently sees [facility] -fasting labs ordered today to check lipids, vitamin-D, basic metabolic panel, hemoglobin hematocrit and liver enzymes -prescription sent to for famotidine 40 mg to be taken once a day as needed for heartburn symptoms -continued on rivaroxaban 20 mg daily -- Smoking: The patient smokes approximately seven cigarettes a day and is attempting to quit without nicotine replacement therapy. - Substance use: The patient occasionally uses a marijuana-based drink to aid sleep. Orders: Orders XR DEXA axial skeleton 01/09/25 M81.0 - Age-related osteoporosis without current pathological fracture Lipid Panel 01/09/25 D68.51 - Activated protein C resistance, J45.20 - Mild intermittent asthma, uncomplicated, R12 - Heartburn, Z00.01 - Encounter for general adult medical examination with abnormal findings, Z72.0 - Tobacco use, Z78.0 - Asymptomatic menopausal state Vitamin D 25-OH Total 01/09/25 D68.51 - Activated protein C resistance, J45.20 - Mild intermittent asthma, uncomplicated, R12 - Heartburn, Z00.01 - Encounter for general adult medical examination with abnormal findings, Z72.0 - Tobacco use, Z78.0 - Asymptomatic menopausal state Basic Metabolic Panel Fasting 01/09/25 D68.51 - Activated protein C resistance, J45.20 - Mild intermittent asthma, uncomplicated, R12 - Heartburn, Z00.01 - Encounter for general adult medical examination with abnormal findings, Z72.0 - Tobacco use, Z78.0 - Asymptomatic menopausal state Hemoglobin and Hematocrit 01/09/25 D68.51 - Activated protein C resistance, J45.20 - Mild intermittent asthma, uncomplicated, R12 - Heartburn, Z00.01 - Encounter for general adult medical examination with abnormal findings, Z72.0 - Tobacco use, Z78.0 - Asymptomatic menopausal state Aspartate Amino Transferase 01/09/25 D68.51 - Activated protein C resistance, J45.20 - Mild intermittent asthma, uncomplicated, R12 - Heartburn, Z00.01 - Encounter for general adult medical examination with abnormal findings, Z72.0 - Tobacco use, Z78.0 - Asymptomatic menopausal state Alanine Aminotransferase 01/09/25 D68.51 - Activated protein C resistance, J45.20 - Mild intermittent asthma, uncomplicated, R12 - Heartburn, Z00.01 - Encounter for general adult medical examination with abnormal findings, Z72.0 - Tobacco use, Z78.0 - Asymptomatic menopausal state Referrals Gastroenterology Referral Z12.11 - Encounter for screening for malignant neoplasm of colon Medications: New famotidine 40 mg PO DAILY 30 tabs 5RF NS R12 - Heartburn
--- OUTSIDE RECORDS SUMMARY | 2025-01-09 09:09 | XMS_ITS | Clinical Summary ---
Author Organization [facility] Address [address] [place] [id number] Phone Care Team Providers Care Scrum Coach Name Role Phone Yanni Curry MD Primary Care Provider Social History Tobacco Use Types Packs/Day Years Used Date Smoking Tobacco: Never Assessed Comments Unknown Sex and Gender Information Value Date Recorded Sex Assigned at Not on file Legal Sex Female 10:34 PM EDT Gender Identity Not on file Sexual Orientation Not on file Last Filed Vital Signs Vital Sign Reading Time Taken Comments Blood Pressure 134/80 05/27/2012 1:35 AM EST Pulse - - Temperature - - Respiratory Rate - - Oxygen Saturation - - Inhaled Oxygen Concentration - - Weight 117.9 kg (260 lb) 05/27/2012 1:35 AM EST Height 165.1 cm (5' 5 ) 05/27/2012 1:35 AM EST Body Mass Index 43.27 05/27/2012 1:35 AM EST Plan of Treatment Not on file Medical Devices Not on file Care Teams Scrum Coach Relationship Specialty Start Date End Date Yanni Curry MD [facility] [address] [place] [id number] PCP - General Internal Medicine 01/23/23 Additional Source Comments The information contained in this document represents components of the legal health record. It is not the complete legal health record.[facility]
== END 2025-01-09 10:00 | disposition home or self-care (01) ==
PROVIDERS: PCP Internal Medicine; Visit Provider Internal Medicine
DX: R12 Heartburn (principal); Z00.01 Encounter for general adult medical examination with abnormal findings; Z12.11 Encounter for screening for malignant neoplasm of colon; M81.0 Age-related osteoporosis without current pathological fracture; J45.20 Mild intermittent asthma, uncomplicated; D68.51 Activated protein C resistance; Z28.20 Immunization not carried out because of patient decision for unspecified reason

== ENCOUNTER 2025-01-09 08:49 | Outpatient (REF) | payer MEDICARE, OTHER, SELFPAY ==
[2025-01-09 13:41] LABS: Hematocrit 39.9 % (37.0-47.0); Hemoglobin 13.6 g/dl (12.0-16.0)
[2025-01-09 13:59] LABS: Alanine Aminotransferase 9 U/L (0-31); Anion Gap 13 (12-20); Aspartate Amino Transferase 35 U/L (5-31); Blood Urea Nitrogen 8 mg/dL (9-16); Calcium 8.9 mg/dL (8.4-10.2); Carbon Dioxide 25 mmol/L (22-29); Chloride 104 mmol/L (96-108); Cholesterol 200 mg/dL (<200); Estimated Glomerular Filt Rate > 60; HDL Cholesterol 105 mg/dL (>40); Potassium 4.1 mmol/L (3.3-5.1); Sodium 138 mmol/L (135-145); Triglycerides 120 mg/dL (<150)
== END 2025-01-09 08:50 | disposition home or self-care (01) ==
LOC: HO.HMGCLDS 08:49
PROVIDERS: PCP Internal Medicine; Visit Provider Internal Medicine
DX: Z00.01 Encounter for general adult medical examination with abnormal findings (principal); R12 Heartburn; M81.0 Age-related osteoporosis without current pathological fracture; J45.20 Mild intermittent asthma, uncomplicated; D68.51 Activated protein C resistance; Z28.20 Immunization not carried out because of patient decision for unspecified reason; Z78.0 Asymptomatic menopausal state; Z72.0 Tobacco use; Z13.31 Encounter for screening for depression
CPT/HCPCS: 36415; 80048; 80061; 82306; 84450; 84460; 85014; 85018; 96127; 99396